=== PATIENT | female | born 1970 | race Caucasian/White ===

== ENCOUNTER → 2016-11-25 | Outpatient (CLI) | payer OTHER ==
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
== END | disposition home or self-care (01) ==
LOC: RADMRIMAIN 08:24
PROVIDERS: ATTEND Family Medicine
DX: M99.71 Connective tissue and disc stenosis of intervertebral foramina of cervical region (principal); M99.72 Connective tissue and disc stenosis of intervertebral foramina of thoracic region; M50.222 Other cervical disc displacement at C5-C6 level; M51.24 Other intervertebral disc displacement, thoracic region; M46.82 Other specified inflammatory spondylopathies, cervical region
CPT/HCPCS: 72141

== ENCOUNTER → 2017-03-06 | Outpatient (CLI) | payer OTHER ==
--- NOTE | 2017-03-06 08:55 | MR ---
EXAMINATION TYPE: MR shoulder LT wo con DATE OF EXAM: 03/06/2017 8:40 AM COMPARISON: NONE HISTORY: pain in lt shoulder TECHNIQUE: Multiplanar multispin echo imaging of the left shoulder was performed. FINDINGS: Rotator cuff : There is a heterogeneity of the supraspinatus tendon with focal intrasubstance tear at the level of the critical zone. No evidence for full-thickness tear. The remaining constituents of t he rotator cuff have a normal appearance. Bursa: No bursal effusion or thickening is seen. Musculature: There is no muscular tear, contusion, or atrophy. Acromioclavicular joint : Subacromial spurring results in impingement. Mild AC joint arthropathy. Osseous structures : There are no fractures or regions of abnormal bone marrow signal intensity. Long biceps tendon : The biceps tendon is normally situated within the bicipital groove. No complete or partial biceps tendon tear is present. There is tendinosis of the intra-articular portion of the b iceps tendon. Glenohumeral Joint fluid : Small amount of fluid within the subcoracoid region. Cartilage and Bone : No focal hyaline cartilage defects are noted. No Hill-Sachs, reverse Hill-Sachs, or bony Bankart lesions are seen. Labrum : There are no SLAP or soft tissue Bankart lesions. No paralabral cysts are seen. OTHER FINDINGS : none IMPRESSION: 1. There is a heterogeneity of the supraspinatus tendon with focal intrasubstance tear at the level o f the critical zone. No evidence for full-thickness tear. 2. Subacromial spur resulting in impingement.
== END | disposition home or self-care (01) ==
LOC: RADMRIMAIN 07:46
PROVIDERS: ATTEND Family Medicine
DX: M75.102 Unspecified rotator cuff tear or rupture of left shoulder, not specified as traumatic (principal); M75.82 Other shoulder lesions, left shoulder

== ENCOUNTER 2017-03-27 10:49 | Emergency (ER) | payer OTHER ==
[2017-03-27] MEDS ORDERED: LORazepam 2 MG/ML SYRINGE IV STA (11:25)
[2017-03-27] MEDS ORDERED: ASPIRIN 325 MG TAB PO STA (11:25)
--- NOTE | 2017-03-27 11:38 | ED ---
General Adult HPI - General Chief complaint: Recheck/Abnormal Lab/Rx Stated complaint: DIZZINESS, LIGHTHEAD Source: patient Mode of arrival: ambulatory Limitations: no limitations - History of Present Illness Initial comments: 46-year-old female with past medical history of anxiety, smoking, appendectomy, tubal ligation presented for evaluation of sudden onset nausea, lightheadedness, shakiness that started at 10:30 AM this morning. She states that she has a long-standing history of anxiety but denies previously having a panic attack. She states when his symptoms came on "I felt like I was going to pass out." She has never had these symptoms previously. Symptoms continued to persist up to arrival in the ED although they did dissipate slightly. She states she had some chest discomfort that radiated to her left arm that she describes as a warm sensation. She denies any symptoms, diarrhea, constipation although she has been having some abdominal discomfort for the past week or so. She states this is nonspecific and there is no localized pain. There is no change in medications, no change in diet habits, and she states that her job is going well and there is no stress in her home life. - Related Data Home Medications Medication Instructions Recorded Confirmed DULoxetine HCL [Cymbalta] 30 mg PO DAILY 05/28/16 03/27/17 [place]-3 Fatty Acids/Fish Oil [Fish 1 cap PO DAILY 03/27/17 03/27/17 Oil 1,000 mg Softgel] Turmeric Root Extract [Turmeric] 500 mg PO DAILY 03/27/17 03/27/17 Allergies Allergy/AdvReac Type Severity Reaction Status Date / Time No Known Allergies Allergy Verified 03/27/17 11:26 Review of Systems ROS Statement: Those systems with pertinent positive or pertinent negative responses have been documented in the HPI. ROS Other: All systems not noted in ROS Statement are negative. Constitutional: Denies: fever, chills, weakness Eyes: Denies: eye pain, eye discharge, vision change ENT: Denies: ear pain, throat pain, dental pain, hearing loss Respiratory: Denies: cough, dyspnea, wheezes, hemoptysis, stridor Cardiovascular: Reports: chest pain. Denies: palpitations, dyspnea on exertion , orthopnea, edema Endocrine: Denies: fatigue, polydipsia, polyuria Gastrointestinal: Reports: nausea. Denies: abdominal pain, vomiting, diarrhea, constipation, hematemesis Genitourinary: Denies: urgency, dysuria, frequency, hematuria, discharge Musculoskeletal: Denies: back pain, arthralgia, myalgia Skin: Denies: rash, lesions Neurological: Reports: other (Lightheaded). Denies: headache, weakness Psychiatric: Reports: anxiety. Denies: depression Hematological/Lymphatic: Denies: easy bleeding, easy bruising Past Medical History Past Medical History: No Reported History Additional Past Medical History / Comment(s): ALOPEICA, UTI History of Any Multi-Drug Resistant Organisms: None Reported Past Surgical History: Appendectomy, Tubal Ligation Additional Past Surgical History / Comment(s): WISDOM THEETH EXTRACTED Past Anesthesia/Blood Transfusion Reactions: No Reported Reaction Past Psychological History: Anxiety Additional Psychological History / Comment(s): GENERALIZED ANXIETY DISORDER Smoking Status: Current every day smoker Past Alcohol Use History: Occasional Additional Past Alcohol Use History / Comment(s): SMOKES 1 PP WEEK, DRINKS 1-2 COCTAILS PER NIGHT,DENIES ANY PAST OR CURRENT DRUG USE. Past Drug Use History: None Reported - Past Family History Father History Unknown: Yes Mother History Unknown: Yes General Exam Limitations: no limitations General appearance: alert, in no apparent distress Head exam: Present: atraumatic, normocephalic, normal inspection Eye exam: Present: normal appearance, PERRL, EOMI. Absent: scleral icterus, conjunctival injection, periorbital swelling ENT exam: Present: normal exam, mucous membranes moist Neck exam: Present: normal inspection. Absent: tenderness, meningismus, lymphadenopathy Respiratory exam: Present: normal lung sounds bilaterally. Absent: respiratory distress, wheezes, rales, rhonchi, stridor Cardiovascular Exam: Present: regular rate, normal rhythm, normal heart sounds. Absent: systolic murmur, diastolic murmur, rubs, gallop, clicks GI/Abdominal exam: Present: soft, normal bowel sounds. Absent: distended, tenderness, guarding, rebound, rigid Rectal exam: Present: deferred Extremities exam: Present: normal inspection, full ROM, normal capillary refill. Absent: tenderness, pedal edema, joint swelling, calf tenderness Back exam: Present: normal inspection Neurological exam: Present: alert, oriented X3, CN II-XII intact Psychiatric exam: Present: anxious. Absent: agitated, flat affect, manic Skin exam: Present: warm, dry, intact, normal color. Absent: rash Course Vital Signs 03/27/17 03/27/17 03/27/17 10:58 12:35 13:13 Temperature 98 F Pulse Rate 105 H 104 H 108 H Respiratory 22 20 20 Rate Blood Pressure 147/107 154/103 O2 Sat by Pulse 100 99 Oximetry 03/27/17 14:34 Temperature 98.5 F Pulse Rate 98 Respiratory 18 Rate Blood Pressure 144/83 O2 Sat by Pulse 98 Oximetry - Reevaluation(s) Reevaluation #1: 03/27/17 12:52 Patient reevaluated and stated that she was feeling like her heart was racing. Initially upon entering room the heart rate was around 100 but over the course of the conversation did increase to 120 and then back into the 100 teens. Although the patient is very low risk for DVT/PE she cannot PERC out with a heart rate is high. Will send for a d-dimer. EKG Findings - EKG Comments: EKG Findings:: Normal sinus rhythm with an incomplete right bundle-branch block. Ventricular rate 91, MD interval 126, QRS 110, QT/QTC 384/472. Medical Decision Making - Medical Decision Making 46-year-old female presenting for evaluation of nausea, lightheadedness, shakiness that started at 10:30 suddenly this morning. She states that it feels like anxiety but she doesn't usually have panic attacks all she does have long-standing anxiety. On physical examination the patient does appear anxious although is answering all questions appropriately and is a and O 4. Lungs are clear to auscultation bilaterally and cardiac exam reveals a mild tachycardia but otherwise no significant abnormalities. Abdomen is soft and nontender without peritoneal signs of guarding, rigidity, rebound. Although there is an anxiety component to her symptoms will perform a workup to rule out ACS etiology. The patient was seen here May of last year and had an echo and a stress test which were negative for ischemia. We'll obtain labs, EKG , chest x-ray and provide aspirin. We'll also give Ativan for anxiety. Labs revealed no significant abnormalities. Chest x-ray showed no acute cardio pulmonary process however there was some strandy left infrahilar atelectasis. The patient was reevaluated and had improvement in her tachycardia and also anxiety. She stated that she felt much better at this time and through shared decision making it was determined that she would be discharged with instructions to follow-up with her primary care physician but to return to this facility if her symptoms should worsen or persist. The patient acknowledged an understanding of this information and agreed with this plan of care. - Lab Data Result diagrams: 03/27/17 11:43 03/27/17 11:43 Lab Results 03/27/17 03/27/17 03/27/17 Range/Units 11:43 11:43 11:43 WBC 6.7 (3.8-10.6) k/uL RBC 4.41 (3.80-5.40) m/uL Hgb 14.5 (11.4-16.0) gm/dL Hct 42.2 (34.0-46.0) % MCV 95.5 (80.0-100.0) fL MCH 32.9 (25.0-35.0) pg MCHC 34.5 (31.0-37.0) g/dL RDW 12.7 (11.5-15.5) % Plt Count 283 (150-450) k/uL Neutrophils % 77 % Lymphocytes % 10 % Monocytes % 6 % Eosinophils % 3 % Basophils % 1 % Neutrophils # 5.2 (1.3-7.7) k/uL Lymphocytes # 0.7 L (1.0-4.8) k/uL Monocytes # 0.4 (0-1.0) k/uL Eosinophils # 0.2 (0-0.7) k/uL Basophils # 0.1 (0-0.2) k/uL D-Dimer (<0.60) mg/L FEU Sodium 135 L (137-145) mmol/L Potassium 3.5 (3.5-5.1) mmol/L Chloride 96 L (98-107) mmol/L Carbon Dioxide 26 (22-30) mmol/L Anion Gap 13 mmol/L BUN 11 (7-17) mg/dL Creatinine 0.48 L (0.52-1.04) mg/dL Est GFR (MDRD) Af Amer >60 (>60 ml/min/1.73 sqM) Est GFR (MDRD) Non-Af >60 (>60 ml/min/1.73 sqM) Glucose 162 H (74-99) mg/dL Calcium 9.7 (8.4-10.2) mg/dL Troponin I (0.000-0.034) ng/mL NT-Pro-B Natriuret Pep <11 pg/mL Urine Color Urine Appearance (Clear) Urine pH (5.0-8.0) Ur Specific [place] (1.001-1.035) Urine Protein (Negative) Urine Glucose (UA) (Negative) Urine Ketones (Negative) Urine Blood (Negative) Urine Nitrite (Negative) Urine Bilirubin (Negative) Urine Urobilinogen (<2.0) mg/dL Ur Leukocyte Esterase (Negative) Urine HCG, Qual (Not Detectd) 03/27/17 03/27/17 03/27/17 Range/Units 11:43 11:43 13:05 WBC (3.8-10.6) k/uL RBC (3.80-5.40) m/uL Hgb (11.4-16.0) gm/dL Hct (34.0-46.0) % MCV (80.0-100.0) fL MCH (25.0-35.0) pg MCHC (31.0-37.0) g/dL RDW (11.5-15.5) % Plt Count (150-450) k/uL Neutrophils % % Lymphocytes % % Monocytes % % Eosinophils % % Basophils % % Neutrophils # (1.3-7.7) k/uL Lymphocytes # (1.0-4.8) k/uL Monocytes # (0-1.0) k/uL Eosinophils # (0-0.7) k/uL Basophils # (0-0.2) k/uL D-Dimer 0.38 (<0.60) mg/L FEU Sodium (137-145) mmol/L Potassium (3.5-5.1) mmol/L Chloride (98-107) mmol/L Carbon Dioxide (22-30) mmol/L Anion Gap mmol/L BUN (7-17) mg/dL Creatinine (0.52-1.04) mg/dL Est GFR (MDRD) Af Amer (>60 ml/min/1.73 sqM) Est GFR (MDRD) Non-Af (>60 ml/min/1.73 sqM) Glucose (74-99) mg/dL Calcium (8.4-10.2) mg/dL Troponin I <0.012 (0.000-0.034) ng/mL NT-Pro-B Natriuret Pep pg/mL Urine Color Yellow Urine Appearance Clear (Clear) Urine pH 6.5 (5.0-8.0) Ur Specific [place] 1.009 (1.001-1.035) Urine Protein Negative (Negative) Urine Glucose (UA) Negative (Negative) Urine Ketones 2+ H (Negative) Urine Blood Negative (Negative) Urine Nitrite Negative (Negative) Urine Bilirubin Negative (Negative) Urine Urobilinogen <2.0 (<2.0) mg/dL Ur Leukocyte Esterase Negative (Negative) Urine HCG, Qual (Not Detectd) 03/27/17 Range/Units 13:05 WBC (3.8-10.6) k/uL RBC (3.80-5.40) m/uL Hgb (11.4-16.0) gm/dL Hct (34.0-46.0) % MCV (80.0-100.0) fL MCH (25.0-35.0) pg MCHC (31.0-37.0) g/dL RDW (11.5-15.5) % Plt Count (150-450) k/uL Neutrophils % % Lymphocytes % % Monocytes % % Eosinophils % % Basophils % % Neutrophils # (1.3-7.7) k/uL Lymphocytes # (1.0-4.8) k/uL Monocytes # (0-1.0) k/uL Eosinophils # (0-0.7) k/uL Basophils # (0-0.2) k/uL D-Dimer (<0.60) mg/L FEU Sodium (137-145) mmol/L Potassium (3.5-5.1) mmol/L Chloride (98-107) mmol/L Carbon Dioxide (22-30) mmol/L Anion Gap mmol/L BUN (7-17) mg/dL Creatinine (0.52-1.04) mg/dL Est GFR (MDRD) Af Amer (>60 ml/min/1.73 sqM) Est GFR (MDRD) Non-Af (>60 ml/min/1.73 sqM) Glucose (74-99) mg/dL Calcium (8.4-10.2) mg/dL Troponin I (0.000-0.034) ng/mL NT-Pro-B Natriuret Pep pg/mL Urine Color Urine Appearance (Clear) Urine pH (5.0-8.0) Ur Specific [place] (1.001-1.035) Urine Protein (Negative) Urine Glucose (UA) (Negative) Urine Ketones (Negative) Urine Blood (Negative) Urine Nitrite (Negative) Urine Bilirubin (Negative) Urine Urobilinogen (<2.0) mg/dL Ur Leukocyte Esterase (Negative) Urine HCG, Qual Not Detected (Not Detectd) Disposition Clinical Impression: Anxiety, Palpitations Disposition: HOME SELF-CARE Condition: Stable Instructions: Anxiety (ED), Anxiolysis in Adults (ED) Referrals: Jose Hooper DO [Primary Care Provider] - 1-2 days Time of Disposition: 14:44
[2017-03-27 11:54] LABS: Basophils # (A) 0.1 k/uL (0-0.2); Basophils % (A) 1 %; CH 33.2; CHCM 34.8; Eosinophils # (A) 0.2 k/uL (0-0.7); Eosinophils % (A) 3 %; HCT 42.2 % (34.0-46.0); HDW 2.13; HGB 14.5 gm/dL (11.4-16.0); Luc % (Auto) 3; Lymphocytes # (A) 0.7 k/uL (1.0-4.8); Lymphocytes % (A) 10 %; MCH 32.9 pg (25.0-35.0); MCHC 34.5 g/dL (31.0-37.0); MCV 95.5 fL (80.0-100.0); Mean Platelet Volume 6.9; Monocytes # (A) 0.4 k/uL (0-1.0); Monocytes % (A) 6 %; Neutrophils # (A) 5.2 k/uL (1.3-7.7); Neutrophils % (A) 77 %; RBC 4.41 m/uL (3.80-5.40); RDW 12.7 % (11.5-15.5); WBC 6.7 k/uL (3.8-10.6); WBC (Perox) 6.73
[2017-03-27 12:07] LABS: Anion Gap 13 mmol/L; Blood Urea Nitrogen 11 mg/dL (7-17); Calcium 9.7 mg/dL (8.4-10.2); Carbon Dioxide 26 mmol/L (22-30); Chloride 96 mmol/L (98-107); Glucose 162 mg/dL (74-99); Non-African American GFR(MDRD) >60 (>60 ml/min/1.73 sqM); Potassium 3.5 mmol/L (3.5-5.1); Sodium 135 mmol/L (137-145)
--- NOTE | 2017-03-27 12:32 | XR ---
EXAMINATION TYPE: XR chest 2V DATE OF EXAM: 03/27/2017 12:24 PM COMPARISON: 05/28/2016 HISTORY: 46-year-old female with chest pain TECHNIQUE: AP and lateral views FINDINGS: Heart is normal size. Aorta and pulmonary vasculature within normal limits. No consolidation or pleur al effusion. Some strandy atelectasis in the left infrahilar region. IMPRESSION: No acute cardiopulmonary process. Some strandy left infrahilar atelectasis.
[2017-03-27] MEDS ORDERED: SODIUM CHLORIDE 0.9% 1,000 ML IV ONE (13:05)
[2017-03-27 13:14] LABS: Appearance,Urine Clear (Clear); Bilirubin,Urine Negative (Negative); Glucose,Urine (UA) Negative (Negative); Ketones,Urine 2+ (Negative); Leukocyte Esterase,Urine Negative (Negative); Nitrite,Urine Negative (Negative); PH, Urine 6.5 (5.0-8.0); Protein,Urine Negative (Negative); Specific Gravity,Urine 1.009 (1.001-1.035); UA Billing (MACRO vs. MICRO) CHEM; Urobilinogen,Urine <2.0 mg/dL (<2.0)
[2017-03-27 14:35] VITALS: BP 144/83; PULSE 98; RESP 18; TEMP 98.5
== END 2017-03-27 14:51 | disposition home or self-care (01) ==
LOC: EC 10:49
DX: F41.9 Anxiety disorder, unspecified (principal); J98.11 Atelectasis; R00.0 Tachycardia, unspecified; R42 Dizziness and giddiness; R11.0 Nausea; F17.200 Nicotine dependence, unspecified, uncomplicated; Z79.899 Other long term (current) drug therapy
CPT/HCPCS: 36415; 93005; 85379; 83880; 80048; 84484; 85025; 81003; 81025; 71020; 99284; 96374; 96361 ×2; J2060

== ENCOUNTER 2017-07-18 11:43 | Emergency (ER) | payer OTHER ==
--- NOTE | 2017-07-18 12:23 | ED ---
General Adult HPI - General Chief complaint: Chest Pain Stated complaint: Chest Pain Time Seen by Provider: 07/18/17 12:12 Source: patient Mode of arrival: ambulatory Limitations: no limitations - History of Present Illness Initial comments: This 46-year-old white female presents with a complaint of some pain in her left lower chest and upper abdomen. It is been present for approximately 2 weeks. She describes it as a pulsating type of pain. She states that she can feel her pulse in this area and it correlates with her heart beat when she feels her neck. She states that she was on the Internet and looked up her symptoms and thinks she may have an abdominal aneurysm or a ruptured spleen. She is very nervous in this regard. She states that she does not feel as though it is her heart. She had a negative stress test and cardiac workup 3 months ago prior to left shoulder surgery. She is on an SSRI medication for her anxiety. She denies any leg pain or swelling. There is no shortness of breath fevers or chills. No other complaints or modifying factors. - Related Data Home Medications Medication Instructions Recorded Confirmed [place]-3 Fatty Acids/Fish Oil [Fish 1 cap PO DAILY 03/27/17 07/18/17 Oil 1,000 mg Softgel] Magnesium 200 mg PO DAILY 07/18/17 07/18/17 Sertraline [Zoloft] 25 mg PO DAILY 07/18/17 07/18/17 Allergies Allergy/AdvReac Type Severity Reaction Status Date / Time No Known Allergies Allergy Verified 07/18/17 12:21 Review of Systems ROS Statement: Those systems with pertinent positive or pertinent negative responses have been documented in the HPI. ROS Other: All systems not noted in ROS Statement are negative. Past Medical History Past Medical History: No Reported History Additional Past Medical History / Comment(s): ALOPEICA, UTI History of Any Multi-Drug Resistant Organisms: None Reported Past Surgical History: Appendectomy, Tubal Ligation Additional Past Surgical History / Comment(s): WISDOM TEETH EXTRACTED Past Anesthesia/Blood Transfusion Reactions: No Reported Reaction Past Psychological History: Anxiety Smoking Status: Current every day smoker Past Alcohol Use History: Occasional Past Drug Use History: None Reported - Past Family History Father History Unknown: Yes Mother History Unknown: Yes General Exam - General Exam Comments Initial Comments: GENERAL: The patient is well nourished and well hydrated. VITAL SIGNS: Heart rate, blood pressure, respiratory rate reviewed as recorded in nurse's notes. EYES: Pupils are round and reactive. Extraocular movements are intact. No conjunctival / lid redness or swelling. ENT: No external evidence of injury, swelling, or ecchymosis. Airway is patent. Throat is clear. NECK: Nontender. No swelling or evidence of injury. No subcutaneous emphysema. Trachea is midline. No thyroid mass. HEART: Regular rate and rhythm. Good peripheral pulses. LUNGS/CHEST: Breath sounds clear and equal bilaterally. No rales, rhonchi, or wheezes. There is some mild tenderness into the left inferior lateral ribs. ABDOMEN: There is some minimal tenderness in the left upper quadrant and into the left lower inferolateral ribs. No palpable masses or organomegaly. No peritoneal signs. No abdominal wall swelling or ecchymosis. EXTREMITIES: No extremity tenderness. Normal muscle tone and function. No thoracolumbar tenderness. NEUROLOGIC: Sensation is grossly intact. Cranial nerve exam reveals face is symmetrical, tongue is midline, speech is clear. SKIN: No abrasions or ecchymosis is noted. No induration or masses noted. PSYCHIATRIC: Alert and oriented. Appropriate behavior and judgment but appears mildly anxious. Limitations: no limitations Course Vital Signs 07/18/17 07/18/17 07/18/17 11:47 13:48 15:00 Temperature 97.1 F L Pulse Rate 90 83 Respiratory 20 18 18 Rate Blood Pressure 135/85 129/61 124/82 O2 Sat by Pulse 99 98 100 Oximetry Medical Decision Making - Medical Decision Making The patient was seen and examined. All diagnostics were reviewed. The EKG shows a normal sinus rhythm at a rate of 86. There is no acute ST-T wave changes identified. The TN interval is 124, QRS duration is 98, and the QTc interval is 457. The laboratory is all essentially within normal limits. The ultrasound of the abdomen does show a normal spleen and normal aorta. The radiologist notes the possibility of hydronephrosis on the right side. This would not clinically correlate with current symptomatology has her symptoms are all on the left side. The exam was also limited due to bowel gas. Overall, the exact cause of her symptoms is not definitively determined. It is felt as though her pain is reproducible and is not appear to be of cardiac origin. She also had recent cardiac workup which was negative. The possibility of this being related to gastritis or peptic ulcer disease is possible although she states that she recently went on a trial of Prilosec for 2 weeks and this did not seem to help. It is felt as though she does have a degree of chronicity to her current symptomatology and that there is no acute process at this time and that she is cleared for discharge from the ER and close follow-up with her primary care physician for further evaluation. - Lab Data Result diagrams: 07/18/17 12:55 07/18/17 12:55 Lab Results 07/18/17 07/18/17 07/18/17 Range/Units 12:55 12:55 12:55 WBC 8.2 (3.8-10.6) k/uL RBC 4.77 (3.80-5.40) m/uL Hgb 15.2 (11.4-16.0) gm/dL Hct 44.2 (34.0-46.0) % MCV 92.6 (80.0-100.0) fL MCH 31.8 (25.0-35.0) pg MCHC 34.4 (31.0-37.0) g/dL RDW 12.6 (11.5-15.5) % Plt Count 312 (150-450) k/uL Neutrophils % 78 % Lymphocytes % 14 % Monocytes % 5 % Eosinophils % 2 % Basophils % 1 % Neutrophils # 6.3 (1.3-7.7) k/uL Lymphocytes # 1.1 (1.0-4.8) k/uL Monocytes # 0.4 (0-1.0) k/uL Eosinophils # 0.2 (0-0.7) k/uL Basophils # 0.1 (0-0.2) k/uL PT (9.0-12.0) sec INR (<1.2) APTT (22.0-30.0) sec Sodium 138 (137-145) mmol/L Potassium 3.9 (3.5-5.1) mmol/L Chloride 101 (98-107) mmol/L Carbon Dioxide 23 (22-30) mmol/L Anion Gap 14 mmol/L BUN 9 (7-17) mg/dL Creatinine 0.54 (0.52-1.04) mg/dL Est GFR (MDRD) Af Amer >60 (>60 ml/min/1.73 sqM) Est GFR (MDRD) Non-Af >60 (>60 ml/min/1.73 sqM) Glucose 95 (74-99) mg/dL Calcium 9.7 (8.4-10.2) mg/dL Total Bilirubin 0.5 (0.2-1.3) mg/dL AST 31 (14-36) U/L ALT 44 (9-52) U/L Alkaline Phosphatase 56 (38-126) U/L Total Creatine Kinase 44 (30-135) U/L CK-MB (CK-2) 0.5 (0.0-2.4) ng/mL CK-MB (CK-2) Rel Index 1.1 Troponin I <0.012 (0.000-0.034) ng/mL Total Protein 7.6 (6.3-8.2) g/dL Albumin 4.8 (3.5-5.0) g/dL Amylase 64 (30-110) U/L Lipase 121 (23-300) U/L Urine Color Urine Appearance (Clear) Urine pH (5.0-8.0) Ur Specific [place] (1.001-1.035) Urine Protein (Negative) Urine Glucose (UA) (Negative) Urine Ketones (Negative) Urine Blood (Negative) Urine Nitrite (Negative) Urine Bilirubin (Negative) Urine Urobilinogen (<2.0) mg/dL Ur Leukocyte Esterase (Negative) 07/18/17 07/18/17 Range/Units 12:55 13:55 WBC (3.8-10.6) k/uL RBC (3.80-5.40) m/uL Hgb (11.4-16.0) gm/dL Hct (34.0-46.0) % MCV (80.0-100.0) fL MCH (25.0-35.0) pg MCHC (31.0-37.0) g/dL RDW (11.5-15.5) % Plt Count (150-450) k/uL Neutrophils % % Lymphocytes % % Monocytes % % Eosinophils % % Basophils % % Neutrophils # (1.3-7.7) k/uL Lymphocytes # (1.0-4.8) k/uL Monocytes # (0-1.0) k/uL Eosinophils # (0-0.7) k/uL Basophils # (0-0.2) k/uL PT 10.2 (9.0-12.0) sec INR 1.0 (<1.2) APTT 25.0 (22.0-30.0) sec Sodium (137-145) mmol/L Potassium (3.5-5.1) mmol/L Chloride (98-107) mmol/L Carbon Dioxide (22-30) mmol/L Anion Gap mmol/L BUN (7-17) mg/dL Creatinine (0.52-1.04) mg/dL Est GFR (MDRD) Af Amer (>60 ml/min/1.73 sqM) Est GFR (MDRD) Non-Af (>60 ml/min/1.73 sqM) Glucose (74-99) mg/dL Calcium (8.4-10.2) mg/dL Total Bilirubin (0.2-1.3) mg/dL AST (14-36) U/L ALT (9-52) U/L Alkaline Phosphatase (38-126) U/L Total Creatine Kinase (30-135) U/L CK-MB (CK-2) (0.0-2.4) ng/mL CK-MB (CK-2) Rel Index Troponin I (0.000-0.034) ng/mL Total Protein (6.3-8.2) g/dL Albumin (3.5-5.0) g/dL Amylase (30-110) U/L Lipase (23-300) U/L Urine Color Light Yellow Urine Appearance Clear (Clear) Urine pH 5.5 (5.0-8.0) Ur Specific [place] 1.003 (1.001-1.035) Urine Protein Negative (Negative) Urine Glucose (UA) Negative (Negative) Urine Ketones 1+ H (Negative) Urine Blood Negative (Negative) Urine Nitrite Negative (Negative) Urine Bilirubin Negative (Negative) Urine Urobilinogen <2.0 (<2.0) mg/dL Ur Leukocyte Esterase Negative (Negative) Disposition Clinical Impression: Chest pain, Abdominal pain Disposition: HOME SELF-CARE Condition: Good Instructions: Chest Pain (ED), Abdominal Pain (ED) Referrals: Jose Hooper DO [Primary Care Provider] - 1-2 days Time of Disposition: 15:37
[2017-07-18 13:11] LABS: Basophils # (A) 0.1 k/uL (0-0.2); Basophils % (A) 1 %; CH 32.9; CHCM 35.7; Eosinophils # (A) 0.2 k/uL (0-0.7); Eosinophils % (A) 2 %; HCT 44.2 % (34.0-46.0); HDW 2.39; HGB 15.2 gm/dL (11.4-16.0); Luc # (Auto) 0.12; Luc % (Auto) 2; Lymphocytes # (A) 1.1 k/uL (1.0-4.8); Lymphocytes % (A) 14 %; MCH 31.8 pg (25.0-35.0); MCHC 34.4 g/dL (31.0-37.0); MCV 92.6 fL (80.0-100.0); Mean Platelet Volume 7.9; Monocytes # (A) 0.4 k/uL (0-1.0); Monocytes % (A) 5 %; Neutrophils # (A) 6.3 k/uL (1.3-7.7); Neutrophils % (A) 78 %; RBC 4.77 m/uL (3.80-5.40); RDW 12.6 % (11.5-15.5); WBC 8.2 k/uL (3.8-10.6); WBC (Perox) 8.24
[2017-07-18 13:15] LABS: Prothrombin Time 10.2 sec (9.0-12.0)
[2017-07-18 13:18] LABS: ALT 44 U/L (9-52); AST 31 U/L (14-36); Alkaline Phosphatase 56 U/L (38-126); Amylase 64 U/L (30-110); Anion Gap 14 mmol/L; Blood Urea Nitrogen 9 mg/dL (7-17); Calcium 9.7 mg/dL (8.4-10.2); Carbon Dioxide 23 mmol/L (22-30); Chloride 101 mmol/L (98-107); Glucose 95 mg/dL (74-99); Non-African American GFR(MDRD) >60 (>60 ml/min/1.73 sqM); Potassium 3.9 mmol/L (3.5-5.1); Sodium 138 mmol/L (137-145); Total Bilirubin 0.5 mg/dL (0.2-1.3); Total Protein 7.6 g/dL (6.3-8.2)
[2017-07-18 13:34] LABS: Creatine Kinase 44 U/L (30-135)
[2017-07-18 13:47] LABS: Creatine Kinase MB 0.5 ng/mL (0.0-2.4); Troponin I <0.012 ng/mL (0.000-0.034)
[2017-07-18 14:20] LABS: Appearance,Urine Clear (Clear); Bilirubin,Urine Negative (Negative); Glucose,Urine (UA) Negative (Negative); Ketones,Urine 1+ (Negative); Leukocyte Esterase,Urine Negative (Negative); Nitrite,Urine Negative (Negative); PH, Urine 5.5 (5.0-8.0); Protein,Urine Negative (Negative); Specific Gravity,Urine 1.003 (1.001-1.035); UA Billing (MACRO vs. MICRO) CHEM; Urobilinogen,Urine <2.0 mg/dL (<2.0)
[2017-07-18 14:27] VITALS: RESP 18
--- NOTE | 2017-07-18 15:00 | US ---
EXAMINATION TYPE: US abdomen complete DATE OF EXAM: 07/18/2017 COMPARISON: NONE CLINICAL HISTORY: Pain. Intermittent LUQ pain x couple weeks, history of appendectomy EXAM MEASUREMENTS: Liver Length: 14.8 cm Gallbladder Wall: 0.2 cm CBD: 0.3 cm Spleen: 7.9 cm Right Kidney: 10.8 x 5.0 x 5.6 cm Left Kidney: 10.0 x 5.6 x 4.9 cm Pancreas: visualized portions wnl, head limited by overlying midline bowel gas, tail obscured by ove rlying midline bowel gas Liver: wnl Gallbladder: wnl Evidence for sonographic Goss's sign: no CBD: wnl Spleen: visualized portions wnl, limited by rib shadowing and overlying bowel gas Right Kidney: small amount of fluid in renal pelvis, inferior pole limited by overlying bowel gas Left Kidney: visualized portions wnl, superior pole limited by rib shadowing and overlying bowel gas Upper IVC: wnl in its visualized portions Abd Aorta: wnl There is no ascites. IMPRESSION: There are some limitations in exam. There may be some minimal hydronephrosis on the right .
[2017-07-18 15:17] VITALS: BP 124/82; PULSE 83
[2017-07-18 15:52] VITALS: TEMP 98
--- NOTE | 2017-07-21 12:58 | XR ---
EXAMINATION TYPE: XR chest 2V DATE OF EXAM: 07/18/2017 COMPARISON: 03/27/2017 TECHNIQUE: PA and lateral views submitted. HISTORY: Weakness, chest pain FINDINGS: The lungs are clear and there is no pneumothorax, pleural effusion, or focal pneumonia. Hypertrophi c and degenerative change of the spine. No overt failure. IMPRESSION: 1. No acute process.
== END 2017-07-18 15:52 | disposition home or self-care (01) ==
LOC: EC 11:43
DX: R07.81 Pleurodynia (principal); R10.12 Left upper quadrant pain; F41.9 Anxiety disorder, unspecified; F17.200 Nicotine dependence, unspecified, uncomplicated; Z79.899 Other long term (current) drug therapy; Z98.890 Other specified postprocedural states
CPT/HCPCS: 36415; 71020; 76700; 80053; 81003; 82150; 82550; 82553; 83690; 84484; 85025; 85610; 85730; 93005; 99285

== ENCOUNTER → 2017-07-25 | Outpatient (CLI) | payer OTHER ==
--- NOTE | 2017-07-25 09:15 | US ---
EXAMINATION TYPE: US axilla LT DATE OF EXAM: 07/25/2017 COMPARISON: NONE CLINICAL HISTORY: Edema R60.9. Patient stated has had pain and swelling left axilla prior to left sury ulder surgery in May 2017. Patient stated is coming for mammogram next week; no trauma to left axill a per patient and is left hand dominant. US findings: at left axilla two lymph nodes are seen with larger = 1.0 x 1.1 x 0.4cm; left axillary a rtery and vein are patent by color flow and PW Doppler. Right axilla is compared and a lymph node is also imaged = 1.4 x 1.0 x 0.4cm. IMPRESSION: 1. Axillary lymph nodes
== END | disposition home or self-care (01) ==
LOC: RADUSWWP 08:15
PROVIDERS: ATTEND Family Medicine
DX: R60.9 Edema, unspecified (principal)

== ENCOUNTER → 2017-07-28 | Outpatient (CLI) | payer OTHER ==
--- NOTE | 2017-07-28 09:11 | MM ---
Reason for exam: screening (asymptomatic). Baseline mammogram. Physical Findings: Nurse did not find any significant physical abnormalities on exam. MG Screening Mammo w CAD Bilateral CC and MLO view(s) were taken. There are scattered fibroglandular densities. Asymmetric density lateral right breast. Focal asymmetry 9 o'clock left breast. These may relate to summation shadow but further evaluation is recommended. These results were verbally communicated with the patient and result sheet given to the patient on 07/28/17. ASSESSMENT: Incomplete: need additional imaging evaluation, BI-RAD 0 RECOMMENDATION: Special view mammogram of both breasts. If lesion persists on supplemental views, image directed ultrasound is recommended. [facility] will attempt to contact patient to return for supplemental views and ultrasound if indicated.
--- NOTE | 2017-07-28 09:13 | MM ---
Reason for exam: additional evaluation requested from abnormal screening. MG Work Up Mamm w CAD BILAT Bilateral LM view(s) were taken. CC view(s) were taken of the right breast. Spot compression CC and spot compression MLO view(s) were taken of the left breast. There are scattered fibroglandular densities. No persisting abnormality is seen. These results were verbally communicated with the patient and result sheet given to the patient on 07/28/17. ASSESSMENT: Negative, BI-RAD 1 RECOMMENDATION: Return to routine screening mammogram schedule for both breasts.
== END | disposition home or self-care (01) ==
LOC: RADMAMWWP 07:40
PROVIDERS: ATTEND Family Medicine
DX: Z12.31 Encounter for screening mammogram for malignant neoplasm of breast (principal); R92.8 Other abnormal and inconclusive findings on diagnostic imaging of breast
CPT/HCPCS: G0202; G0204

== ENCOUNTER → 2017-12-03 | Outpatient (CLI) | payer OTHER ==
--- NOTE | 2017-12-03 17:01 | US ---
EXAMINATION TYPE: US axilla RT DATE OF EXAM: 12/03/2017 COMPARISON: NONE CLINICAL HISTORY: R59.0 Localized enlarged. No palpable and no pain Normal appearing soft tissue with largest lymph node seen measuring 0.8 x 0.5 x 0.6 cm IMPRESSION: 1. Normal right axillary ultrasound
--- NOTE | 2017-12-03 17:03 | US ---
EXAMINATION TYPE: US axilla LT DATE OF EXAM: 12/03/2017 COMPARISON: NONE CLINICAL HISTORY: R59.0 Localized enlarged. Patient had left axilla scanned in July and wanted f ollow up exam, no palpable, no pain Normal appearing soft tissue with largest appearing lymph node measuring 1.0 x 0.5 x 0.9 cm. IMPRESSION: 1. Normal left axillary ultrasound
== END | disposition home or self-care (01) ==
LOC: RADUSWWP 07:06
PROVIDERS: ATTEND Family Medicine
DX: R59.0 Localized enlarged lymph nodes (principal)

== ENCOUNTER → 2018-03-06 | Outpatient (CLI) | payer OTHER ==
--- NOTE | 2018-03-06 08:27 | CT ---
EXAMINATION TYPE: CT chest w con DATE OF EXAM: 03/06/2018 COMPARISON: NONE HISTORY: Lt upper chest pain CT DLP: 522 mGycm Automated exposure control for dose reduction was used. CONTRAST: CT scan of the chest is performed with IV Contrast, patient injected with 100 mL of Isovue 300. FINDINGS: LUNGS: The lungs are grossly clear, there is no concerning parenchymal mass or nodule identified. T here is no pleural effusion or pneumothorax seen. The tracheobronchial tree is patent. MEDIASTINUM: There are no greater than 1 cm hilar or mediastinal lymph nodes. No pericardial effusi on is seen. Thoracic aorta is of normal caliber. The heart is not enlarged. UPPER ABDOMEN: No significant abnormality appreciated. OTHER: No additional significant abnormality is seen. IMPRESSION: No significant abnormality to account for the patient's symptoms. Correlate clinically.
== END | disposition home or self-care (01) ==
LOC: RADCTMAIN 07:03
PROVIDERS: ATTEND Family Medicine
DX: R07.9 Chest pain, unspecified (principal)
CPT/HCPCS: 71260; Q9967

== ENCOUNTER → 2018-08-06 | Outpatient (CLI) | payer OTHER ==
--- NOTE | 2018-08-06 09:24 | MM ---
Reason for exam: additional evaluation requested from prior study. Last mammogram was performed 1 year ago. Physical Findings: Nurse did not find any significant physical abnormalities on exam. MG Diagnostic Mammo w CAD NADER Bilateral CC and MLO view(s) were taken. Prior study comparison: July 28, 2017, bilateral MG work up mamm w CAD BILAT. July 28, 2017, bilateral MG screening mammo w CAD. There are scattered fibroglandular densities. No significant new findings when compared with previous films. These results were verbally communicated with the patient and result sheet given to the patient on 08/06/18. ASSESSMENT: Negative, BI-RAD 1 RECOMMENDATION: Routine screening mammogram of both breasts in 1 year.
== END | disposition home or self-care (01) ==
LOC: RADMAMWWP 07-29 07:10
PROVIDERS: ATTEND Family Medicine
DX: Z53.9 Procedure and treatment not carried out, unspecified reason (principal)

== ENCOUNTER 2022-08-06 09:09 | Day surgery (SDC) | payer OTHER ==
[2022-08-02 11:37] VITALS: BMI 28.3
[~2022-08-06 09:09] MED LIST: LACTATED RINGERS 1,000 ML IV SCH
[2022-08-06] MEDS ORDERED: LACTATED RINGERS 1,000 ML IV ONE (09:55)
[2022-08-06 09:56] VITALS: TEMP 97.1
[2022-08-06] MEDS ORDERED: PROPOFOL 10 MG/ML 20 ML VIAL IV ONE (10:48)
--- NOTE | 2022-08-06 11:05 | P.PCN ---
Date of Procedure: 08/06/22 Procedure(s) Performed: BRIEF HISTORY: Patient is a 51-year-old [place] female scheduled for an elective colonoscopy as a part of screening for colon cancer and family history of colon cancer. Her mother was diagnosed with colon cancer at age 53. PROCEDURE PERFORMED: Colonoscopy with snare polypectomy. PREOPERATIVE DIAGNOSIS: Screening for colon Cancer and family history of colon cancer. IV sedation per Anesthesia. PROCEDURE: After informed consent was obtained, the patient, was brought into [facility] endoscopy unit. IV sedation was administered by Anesthesia under continuous monitoring. Digital rectal examination was normal. Initially the Olympus CF-160 flexible video colonoscope was then inserted in the rectum, gradually advanced into the cecum without any difficulty. Careful examination was performed as the scope was gradually being withdrawn. Ileocecal valve and the appendiceal orifice were visualized and appeared normal. Prep was excellent. Mucosa of the cecum had a 1 cm flat polyp that was removed by snare polypectomy. Rest of the, ascending colon, transverse colon, descending colon, sigmoid colon, and rectum appeared normal. Retroflexion was performed in the rectum and no lesions were seen. The patient tolerated the procedure well. IMPRESSION: 1 cm flat cecal polyp status post polypectomy Rest of the colon appeared RECOMMENDATIONS: Findings of this examination were discussed with the patient as her family. She was advised to follow with the biopsy results. If the biopsy is adenoma she can colonoscopy in 3 years..
[2022-08-06 11:43] VITALS: RESP 16
[2022-08-06 11:44] VITALS: BP 114/75; PULSE 67
== END 2022-08-06 11:46 | disposition home or self-care (01) ==
LOC: ORWHC2ENDO 09:09
PROVIDERS: ATTEND Internal Medicine Gastroenterology
DX: Z12.11 Encounter for screening for malignant neoplasm of colon (principal); D12.0 Benign neoplasm of cecum; Z80.0 Family history of malignant neoplasm of digestive organs; I10 Essential (primary) hypertension; Z79.899 Other long term (current) drug therapy; F17.200 Nicotine dependence, unspecified, uncomplicated
CPT/HCPCS: 81025; 88305; 45385; J2704

== ENCOUNTER → 2023-12-18 | Outpatient (CLI) | payer OTHER ==
--- NOTE | 2023-12-19 10:31 | MM ---
Reason for Exam: Screening (asymptomatic). Last mammogram was performed 5 year(s) and 5 month(s) ago. Patient History: Menarche at age 15. First Full-Term at age 25. Last menstrual period: 11/24/2023 Risk Values: Shania 5 year model risk: 0.9%. NCI Lifetime model risk: 7.9%. Prior Study Comparison: 07/28/2017 Bilateral Screening Mammogram, [facility]. 07/28/2017 Bilateral Diagnostic Mammogram, [facility]. 08/06/2018 Bilateral Diagnostic Mammogram, [facility]. Tissue Density: The breast tissue is heterogeneously dense. This may lower the sensitivity of mammography. Findings: Analyzed By CAD. There is no suspicious group of microcalcifications or new suspicious mass in either breast. Overall Assessment: Benign, BI-RAD 2 Management: Screening Mammogram of both breasts in 1 year. . Patient should continue monthly self-breast exams. A clinical breast exam by your physician is recommended on an annual basis. This exam should not preclude additional follow-up of suspicious palpable abnormalities. Note on Shania scores and lifetime risk: 1. A Shania score greater than 3% is considered moderate risk. If this is the case, consider specialist referral to assess eligibility for a risk reducing agent. 2. If overall lifetime risk for the development of breast cancer is 20% or higher, the patient may qualify for future screening with alternating mammogram and breast MRI. Electronically signed and approved by: Marty Polk M.D. Radiologis
== END | disposition home or self-care (01) ==
LOC: RADMAMWWP 07:50
PROVIDERS: ATTEND Family Medicine
DX: Z12.39 Encounter for other screening for malignant neoplasm of breast (principal)
CPT/HCPCS: 77067

== ENCOUNTER 2024-08-25 05:57 | Emergency (ER) | payer BC, OTHER ==
--- NOTE | 2024-08-25 06:49 | ED ---
ENT HPI - General Chief complaint: Dental/Oral Stated complaint: abnormal labs Time Seen by Provider: 08/25/24 06:16 Source: patient, RN notes reviewed Mode of arrival: ambulatory Limitations: no limitations - History of Present Illness Initial comments: 53-year-old female presents emergency department complaint of left-sided facial pain, swelling, sore throat. Patient states she started with upper respiratory viral infection last week she states that she got worse in which she presented back to urgent care and was placed on doxycycline and steroids for which she told was a bacterial infection because she was complaining of ear pain. Patient states that she has had worsening left lower dental pain which has had a prior root canal in this area she states it is more painful, swelling and is painful to swallow. - Related Data Home Medications Medication Instructions Recorded Confirmed Milligan-3 Fatty Acids/Fish Oil [Fish 1 cap PO DAILY 03/27/17 08/02/22 Oil 1,000 mg Softgel] Magnesium 200 mg PO HS 07/18/17 08/02/22 Metoprolol Succinate [Toprol XL] 50 mg PO BID 08/02/22 08/02/22 Venlafaxine HCl [Effexor XR] 150 mg PO DAILY 08/02/22 08/02/22 Previous Rx's Medication Instructions Recorded Amoxic-Pot Clav 875-125Mg 1 tab PO Q12HR #20 tab 08/25/24 [Augmentin 875-125] Allergies Allergy/AdvReac Type Severity Reaction Status Date / Time No Known Allergies Allergy Verified 08/25/24 06:10 Review of Systems ROS Statement: Those systems with pertinent positive or pertinent negative responses have been documented in the HPI. ROS Other: All systems not noted in ROS Statement are negative. Past Medical History Past Medical History: No Reported History Additional Past Medical History / Comment(s): ALOPEICA, UTI History of Any Multi-Drug Resistant Organisms: None Reported Past Surgical History: Appendectomy, Tubal Ligation Additional Past Surgical History / Comment(s): WISDOM TEETH EXTRACTED, LEFT SHOULDER SURGERY Past Anesthesia/Blood Transfusion Reactions: No Reported Reaction Past Psychological History: Anxiety Smoking Status: Former smoker Past Alcohol Use History: None Reported Past Drug Use History: None Reported - Past Family History Father History Unknown: Yes Mother History Unknown: Yes Family Medical History: Cancer Additional Family Medical History / Comment(s): COLON CANCER General Exam Limitations: no limitations General appearance: alert, in no apparent distress Head exam: Present: atraumatic, normocephalic, normal inspection Eye exam: Present: normal appearance, PERRL, EOMI. Absent: scleral icterus, conjunctival injection, periorbital swelling ENT exam: Present: mucous membranes dry, mucous membranes moist, TM's normal bilaterally. Absent: normal oropharynx (swelling along the left side of the face, there is no drainable abscess) Neck exam: Present: normal inspection, full ROM. Absent: tenderness, meningismus, lymphadenopathy Respiratory exam: Present: normal lung sounds bilaterally. Absent: respiratory distress, wheezes, rales, rhonchi, stridor Cardiovascular Exam: Present: regular rate, normal rhythm, normal heart sounds. Absent: systolic murmur, diastolic murmur, rubs, gallop, clicks GI/Abdominal exam: Present: soft, normal bowel sounds. Absent: distended, t enderness, guarding, rebound, rigid Course Vital Signs 08/25/24 08/25/24 06:08 06:31 Temperature 97.8 F 100 F H Pulse Rate 87 77 Respiratory 18 16 Rate Blood Pressure 148/104 141/92 O2 Sat by Pulse 100 96 Oximetry Medical Decision Making - Medical Decision Making Was pt. sent in by a medical professional or institution (, PA, CHIP APPLYING MACHINE TENDER, urgent care, hospital, or intermediate...) When possible be specific @ -No Did you speak to anyone other than the patient for history (EMS, parent, family, police, friend...)? What history was obtained from this source @ -No Did you review nursing and triage notes (agree or disagree)? Why? @ -I reviewed and agree with nursing and triage notes Were old charts reviewed (outside hosp., previous admission, EMS record, old EKG, old radiological studies, urgent care reports/EKG's, intermediate records)? Report findings @ -No old charts were reviewed Differential Diagnosis (chest pain, altered mental status, abdominal pain women, abdominal pain men, vaginal bleeding, weakness, fever, dyspnea, syncope, headache, dizziness, GI bleed, back pain, seizure, CVA, palpatations, mental health, musculoskeletal)? @ -Dental infection, dental abscess, sialadenitis, strep throat EKG interpreted by me (3pts min.). @ -None X-rays interpreted by me (1pt min.). @ -None done CT interpreted by me (1pt min.). @ -CT soft tissue neck showing single lymph node correlate for cellulitis no drainable abscess U/S interpreted by me (1pt. min.). @ -None done What testing was considered but not performed or refused? (CT, X-rays, U/S, labs)? Why? @ -None What meds were considered but not given or refused? Why? @ -None Did you discuss the management of the patient with other professionals (professionals i.e. , PA, CHIP APPLYING MACHINE TENDER, lab, RT, psych nurse, social work lecturer, self defense instructor, teacher, administrative services officer, child welfare caseworker)? Give summary @ -No Was smoking cessation discussed for >3mins.? @ -No Was critical care preformed (if so, how long)? @ -No Were there social determinants of health that impacted care today? How? (Homelessness, low income, unemployed, alcoholism, drug addiction, transportation, low edu. Level, literacy, decrease access to med. care, long-term, rehab)? @ -No Was there de-escalation of care discussed even if they declined (Discuss DNR or withdrawal of care, Hospice)? DNR status @ -No What co-morbidities impacted this encounter? (DM, HTN, Smoking, COPD, CAD, Cancer, CVA, ARF, Chemo, Hep., AIDS, mental health diagnosis, sleep apnea, morbid obesity)? @ -None Was patient admitted / discharged? Hospital course, mention meds given and route, prescriptions, significant lab abnormalities, going to OR and other pertinent info. @ -Discharge patient presented for dental pain, ear pain facial swelling. Patient has underlying infection has been on doxycycline but will be switched to Augmentin. Undiagnosed new problem with uncertain prognosis? @ -No Drug Therapy requiring intensive monitoring for toxicity (Heparin, Nitro, Insulin, Cardizem)? @ -No Were any procedures done? @ -No Diagnosis/symptom? @ -Dental infection Acute, or Chronic, or Acute on Chronic? @ -Acute Uncomplicated (without systemic symptoms) or Complicated (systemic symptoms)? @ -Complicated Side effects of treatment? @ -No Exacerbation, Progression, or Severe Exacerbation? @ -No Poses a threat to life or bodily function? How? (Chest pain, USA, MT, pneumonia, PE, COPD, DKA, ARF, appy, cholecystitis, CVA, Diverticulitis, Homicidal, Suicidal, threat to staff... and all critical care pts) @ -No - Lab Data Result diagrams: 08/25/24 06:54 08/25/24 06:54 Lab Results 08/25/24 08/25/24 08/25/24 Range/Units 06:54 06:54 06:54 WBC 11.4 H (3.8-10.6) k/uL RBC 4.43 (3.80-5.40) m/uL Hgb 13.1 (11.4-16.0) gm/dL Hct 39.8 (34.0-46.0) % MCV 89.9 (80.0-100.0) fL MCH 29.6 (25.0-35.0) pg MCHC 32.9 (31.0-37.0) g/dL RDW 13.5 (11.5-15.5) % Plt Count 401 (150-450) k/uL MPV 7.6 Neutrophils % 67 % Lymphocytes % 21 % Monocytes % 7 % Eosinophils % 2 % Basophils % 1 % Neutrophils # 7.6 (1.3-7.7) k/uL Lymphocytes # 2.3 (1.0-4.8) k/uL Monocytes # 0.8 (0-1.0) k/uL Eosinophils # 0.2 (0-0.7) k/uL Basophils # 0.1 (0-0.2) k/uL Sodium 138 (137-145) mmol/L Potassium 3.8 (3.5-5.1) mmol/L Chloride 102 (98-107) mmol/L Carbon Dioxide 29 (22-30) mmol/L Anion Gap 7 mmol/L BUN 10 (7-17) mg/dL Creatinine 0.57 (0.52-1.04) mg/dL Est GFR (CKD-EPI)AfAm >90 (>60 ml/min/1.73 sqM) Est GFR (CKD-EPI)NonAf >90 (>60 ml/min/1.73 sqM) Glucose 102 H (74-99) mg/dL Calcium 9.5 (8.4-10.2) mg/dL Total Bilirubin 0.3 (0.2-1.3) mg/dL AST 27 (14-36) U/L ALT 21 (4-34) U/L Alkaline Phosphatase 60 (38-126) U/L Total Protein 6.6 (6.3-8.2) g/dL Albumin 4.1 (3.5-5.0) g/dL Group A Strep (PCR) NOT DETECTED (Not Detectd) Disposition Clinical Impression: Dental infection, Lymphadenopathy Disposition: HOME SELF-CARE Condition: Stable Instructions (If sedation given, give patient instructions): Lymphadenopathy (ED) Additional Instructions: Please return to the Emergency Department if symptoms worsen or any other concerns. Prescriptions: Amoxic-Pot Clav 875-125Mg [Augmentin 875-125] 1 tab PO Q12HR #20 tab Is patient prescribed a controlled substance at d/c from ED?: No Referrals: Jose Hooper DO [Primary Care Provider] - 1-2 days Time of Disposition: 07:54
[2024-08-25 07:01] LABS: Basophils # (A) 0.1 k/uL (0-0.2); Basophils % (A) 1 %; Eosinophils # (A) 0.2 k/uL (0-0.7); Eosinophils % (A) 2 %; HCT 39.8 % (34.0-46.0); HGB 13.1 gm/dL (11.4-16.0); Lymphocytes # (A) 2.3 k/uL (1.0-4.8); Lymphocytes % (A) 21 %; MCH 29.6 pg (25.0-35.0); MCHC 32.9 g/dL (31.0-37.0); MCV 89.9 fL (80.0-100.0); Mean Platelet Volume 7.6; Monocytes # (A) 0.8 k/uL (0-1.0); Monocytes % (A) 7 %; Neutrophils # (A) 7.6 k/uL (1.3-7.7); Neutrophils % (A) 67 %; Platelet Count 401 k/uL (150-450); RBC 4.43 m/uL (3.80-5.40); RDW 13.5 % (11.5-15.5); WBC 11.4 k/uL (3.8-10.6)
[2024-08-25 07:12] LABS: ALT 21 U/L (4-34); AST 27 U/L (14-36); African American GFR (CKD) >90 (>60 ml/min/1.73 sqM); Albumin 4.1 g/dL (3.5-5.0); Alkaline Phosphatase 60 U/L (38-126); Anion Gap 7 mmol/L; Blood Urea Nitrogen 10 mg/dL (7-17); Calcium 9.5 mg/dL (8.4-10.2); Carbon Dioxide 29 mmol/L (22-30); Chloride 102 mmol/L (98-107); Glucose 102 mg/dL (74-99); Non-African American GFR(CKD) >90 (>60 ml/min/1.73 sqM); Potassium 3.8 mmol/L (3.5-5.1); Sodium 138 mmol/L (137-145); Total Bilirubin 0.3 mg/dL (0.2-1.3); Total Protein 6.6 g/dL (6.3-8.2)
[2024-08-25] MEDS: SODIUM CHLORIDE 0.9% 1,000 ML IV ONE (07:17)
[2024-08-25] MEDS: KETOROLAC 15 MG/ML 1 ML VIAL IVP STA (07:17)
--- NOTE | 2024-08-25 07:45 | CT ---
EXAMINATION TYPE: CT soft tissue neck w con CT DLP: 268.7 mGycm, Automated exposure control for dose reduction was used. DATE OF EXAM: 08/25/2024 7:35 AM COMPARISON: None. CLINICAL INDICATION: Female, 53 years old with history of left sided pain; PHH, Left sided pain, Sinu s and ear pressure TECHNIQUE: Standard enhanced CT of the neck. Axial sections with coronal and sagittal reformats were obtained. Contrast used:100 ml mL of Isovue 300 with IV Contrast, (None if empty) Oral contrast used: (None if empty) FINDINGS: Brain: Visualized portions are grossly unremarkable. Orbits: Unremarkable Sinuses: Grossly unremarkable. Spaces of the neck: Mild Fat stranding changes along the chin most pronounced on the left. Nearby lym ph node as described below. Musculoskeletal: No acute osseous pathology. Lymph nodes: Left anterior 10 R measure up to 9 mm in short axis. Vascular structures: Visualized major arteries are patent without evidence of aneurysm. Thoracic Inlet/airway: Airway is patent. The lung apices are clear. Soft tissues/Thyroid: Thyroid and remainder of the soft tissues are unremarkable. Other: none. IMPRESSION No evidence for significant paranasal sinus disease. The temporal bone and mastoid air cells are rela tively clear. Single prominent lymph node with formation changes along the chin. No organizing fluid collection. Correlate for cellulitis. [facility], , 08/25/2024 7:42 AM
[2024-08-25 08:15] VITALS: BP 142/84; PULSE 78; RESP 20; TEMP 99.6
== END 2024-08-25 08:18 | disposition home or self-care (01) ==
LOC: EC 05:57
DX: K04.7 Periapical abscess without sinus (principal); R59.1 Generalized enlarged lymph nodes; Z87.891 Personal history of nicotine dependence
CPT/HCPCS: 36415; 87651; 80053; 85025; 70491; 99284; 96374; 96361; J1885; Q9967

== ENCOUNTER 2024-09-17 03:05 | Emergency (ER) | payer BC ==
[2024-09-17 03:10] VITALS: TEMP 97.7
--- NOTE | 2024-09-17 03:22 | ED ---
General Adult HPI - General Chief complaint: Headache Stated complaint: Headache Time Seen by Provider: 09/17/24 03:11 Source: patient Mode of arrival: ambulatory Limitations: no limitations - History of Present Illness Initial comments: This is a pleasant 53-year-old female past medical Struve hypertension on metoprolol presenting today for sudden onset severe headache and neck pain. Patient was having intercourse with her this evening around 11:00 when she began having right sided neck pain. Patient did orgasm and afterwards headache became more severe. She took 800 mg ibuprofen and went to bed. She woke up approximately 2 AM with a headache not improved and 10 out of 10. Endorses intermittent blurred vision. In addition to palpitations. She denied slurred speech, numbness, weakness, chest pain, difficulty in breathing. She dominguez s no history of headaches. No fevers chills or recent illness - Related Data Home Medications Medication Instructions Recorded Confirmed [place]-3 Fatty Acids/Fish Oil [Fish 1 cap PO DAILY 03/27/17 08/02/22 Oil 1,000 mg Softgel] Magnesium 200 mg PO HS 07/18/17 08/02/22 Metoprolol Succinate [Toprol XL] 50 mg PO BID 08/02/22 08/02/22 Venlafaxine HCl [Effexor XR] 150 mg PO DAILY 08/02/22 08/02/22 Previous Rx's Medication Instructions Recorded Amoxic-Pot Clav 875-125Mg 1 tab PO Q12HR #20 tab 08/25/24 [Augmentin 875-125] Allergies Allergy/AdvReac Type Severity Reaction Status Date / Time No Known Allergies Allergy Verified 09/17/24 03:10 Review of Systems ROS Statement: Those systems with pertinent positive or pertinent negative responses have been documented in the HPI. ROS Other: All systems not noted in ROS Statement are negative. Past Medical History Past Medical History: No Reported History Additional Past Medical History / Comment(s): ALOPEICA, UTI History of Any Multi-Drug Resistant Organisms: None Reported Past Surgical History: Appendectomy, Tubal Ligation Additional Past Surgical History / Comment(s): WISDOM TEETH EXTRACTED, LEFT SHOULDER SURGERY Past Anesthesia/Blood Transfusion Reactions: No Reported Reaction Past Psychological History: Anxiety Smoking Status: Former smoker Past Alcohol Use History: None Reported Past Drug Use History: None Reported - Past Family History Father History Unknown: Yes Mother History Unknown: Yes Family Medical History: Cancer Additional Family Medical History / Comment(s): COLON CANCER General Exam - General Exam Comments Initial Comments: PE: CONSTITUTIONAL: no apparent distress, well appearing SKIN: Warm, dry, no jaundice, hives or petechiae EYES: Pupils are equally round, extraocular movements intact without nystagmus, clear conjunctiva, non-icteric sclera HENT: Normocephalic, atraumatic, moist mucus membranes, oropharynx clear without exudates NECK: , Full range of motion, normal appearance PULMONARY: Clear to auscultation without wheezes, rhonchi, or rales, normal excursion, no accessory muscle use and no stridor CARDIOVASCULAR: Regular rate, rhythm, normal S1 and S2. No appreciated murmurs, rubs or gallops. Strong radial pulses with intact distal perfusion. No lower extremity edema GASTROINTESTINAL: Soft, active bowel sounds throughout, non-tender, non-d istended, no palpable masses, no rebound or guarding. No hepatosplenomegaly GENITOURINARY: MUSCULOSKELETAL: Extremities have no gross deformity, no edema, redness, or swelling. No calf swelling NEUROLOGIC:_a/o x 3, GCS 15, normal mentation and speech. Moves all extremities x 4 without motor or sensory deficit, cranial nerves: II (visual ortiz without defects), III, IV and (extraocular movements are intact, pupils are equal with normal reaction to light), V (intact facial sensation and jaw opening), VII (no facial droop), IX and X (normal palate movement, midline uvula, normal voice), XI (symmetrical shoulder shrug ), XII (midline tongue protrusion). Motor strength is 5/5 in all extremities. No abnormal movements. Normal muscle tone. Sensation to light touch is intact bilaterally. No cerebellar signs ([id number], [id number] normal) PSYCHIATRIC:_normal mood and affect, thought process is clear and linear Limitations: no limitations Course Vital Signs 09/17/24 09/17/24 09/17/24 03:08 04:37 05:43 Temperature 97.7 F Pulse Rate 81 73 79 Respiratory 18 16 16 Rate Blood Pressure 156/92 114/85 104/86 O2 Sat by Pulse 97 97 97 Oximetry Medical Decision Making - Medical Decision Making Was pt. sent in by a medical professional or institution (Dr., PA, PHOTOGRAPHIC LABORATORY SUPERVISOR, urgent care, hospital, or detention...) When possible be specific @ -No Did you speak to anyone other than the patient for history (EMS, parent, family, police, friend...)? What history was obtained from this source @ -No Did you review nursing and triage notes (agree or disagree)? Why? @ -I reviewed and agree with nursing and triage notes Were old charts reviewed (outside hosp., previous admission, EMS record, old EKG, old radiological studies, urgent care reports/EKG's, detention records)? Report findings @ -Medical records reviewed Differential Diagnosis (chest pain, altered mental status, abdominal pain women, abdominal pain men, vaginal bleeding, weakness, fever, dyspnea, syncope, headache, dizziness, GI bleed, back pain, seizure, CVA, palpatations, mental health, musculoskeletal)? @ -Differential Headache: Migraine, tension, cluster, carbon monoxide, central venous thrombosis, pension karma temporal arteritis, acute closure glaucoma, intercranial hemorrhage, mastoiditis, sinusitis, head injury, this is not meant to be an all-inclusive list. EKG interpreted by me (3pts min.). @ -Sinus rhythm, rate 73 bpm, DC interval 134 ms, QRS duration 113 ms, QT/QTc 4 2 5/430 ms, normal axis, no ST elevations or depressions X-rays interpreted by me (1pt min.). @ -None done CT interpreted by me (1pt min.). @ -No large subarachnoid hemorrhage or mass, no dissection U/S interpreted by me (1pt. min.). @ -None done What testing was considered but not performed or refused? (CT, X-rays, U/S, labs)? Why? @ -None What meds were considered but not given or refused? Why? @ -None Did you discuss the management of the patient with other professionals (pro fessionals i.e. TERESSA Robison, PHOTOGRAPHIC LABORATORY SUPERVISOR, lab, RT, psych nurse, social media intern, hot plate plywood press offbearer, teacher, systems support officer, shoe caser)? Give summary @ -No Was smoking cessation discussed for >3mins.? @ -No Was critical care preformed (if so, how long)? @ -Yes 35 minutes Were there social determinants of health that impacted care today? How? (Homelessness, low income, unemployed, alcoholism, drug addiction, transportat ion, low edu. Level, literacy, decrease access to med. care, usp, rehab)? @ -No Was there de-escalation of care discussed even if they declined (Discuss DNR or withdrawal of care, Hospice)? @ -No What co-morbidities impacted this encounter? (DM, HTN, Smoking, COPD, CAD, Cancer, CVA, ARF, Chemo, Hep., AIDS, mental health diagnosis, sleep apnea, morbid obesity)? @ -None Was patient admitted / discharged? Hospital course, mention meds given and route, prescriptions, significant lab abnormalities, going to OR and other pertinent info. @ -Transfer to [facility] Pleasant 53-year-old female history hypertension that began having severe onset post coital headache and neck pain. Patient seen and assessed on rooming. Mildly Hypertensive, SBP 156. No focal neurologic deficits on exam. Due to no history headaches, severe nature of her headache a stat CT brain CTA were ordered. Patient transferred to CT. No obvious evidence of hemorrhage however was called by Dr. Harrell, radiologist, who notes small area on right side of brain that is area of possible hemorrhage in addition, to CTA there is potentially a small 2 mm aneurysm of the RCA. Recommends LP vs MRI. Due to patient's concerni ng history, severity of headache and findings plan for transfer to [facility] where neurosurgery is available, transfer will not be delayed for LP and results of LP. Nicardipine, ordered, though SBP 114. Updated patient to findings, plan for transfer. Morphine ordered for additional pain control as headache is not improving. Patient remains neurologically intact. She does not take any blood thinners. CT read as query 2 mm anterior communicating artery aneurysm given question of subarachnoid hemorrhage on Noncon CT could represent ruptured aneurysm. CT significant for query slight hyperdensity within the sylvian fissures especially on the right may represent small mount of subarachnoid hemorrhage versus small foci. Discussed case w/ Dr. Gray. ER physician at [facility]. Context with patient for transfer Patient agreeable with plan for transfer. Undiagnosed new problem with uncertain prognosis? @ -No Drug Therapy requiring intensive monitoring for toxicity (Heparin, Nitro, Insulin, Cardizem)? @ -Nicardipine Were any procedures done? @ -No Diagnosis/symptom? @ -Subarachnoid hemorrhage Acute, or Chronic, or Acute on Chronic? @ -Acute Uncomplicated (without systemic symptoms) or Complicated (systemic symptoms)? @ -Complicated Side effects of treatment? @ -No Exacerbation, Progression, or Severe Exacerbation? @ -No Poses a threat to life or bodily function? How? (Chest pain, USA, NE, pneumonia, PE, COPD, DKA, ARF, appy, cholecystitis, CVA, Diverticulitis, Homicidal, Suicidal, threat to staff... and all critical care pts) @ -Yes - Lab Data Result diagrams: 09/17/24 03:23 09/17/24 03:23 Lab Results 09/17/24 09/17/24 09/17/24 Range/Units 03:23 03:23 03:23 WBC 6.4 (3.8-10.6) k/uL RBC 4.60 (3.80-5.40) m/uL Hgb 13.2 (11.4-16.0) gm/dL Hct 41.2 (34.0-46.0) % MCV 89.6 (80.0-100.0) fL MCH 28.7 (25.0-35.0) pg MCHC 32.1 (31.0-37.0) g/dL RDW 12.7 (11.5-15.5) % Plt Count 378 (150-450) k/uL MPV 7.0 Neutrophils % 56 % Lymphocytes % 28 % Monocytes % 8 % Eosinophils % 4 % Basophils % 1 % Neutrophils # 3.5 (1.3-7.7) k/uL Lymphocytes # 1.8 (1.0-4.8) k/uL Monocytes # 0.5 (0-1.0) k/uL Eosinophils # 0.3 (0-0.7) k/uL Basophils # 0.1 (0-0.2) k/uL PT 10.3 (10.0-12.5) sec INR 0.9 (<1.2) APTT 24.8 (22.0-30.0) sec Sodium 136 L (137-145) mmol/L Potassium 4.2 (3.5-5.1) mmol/L Chloride 102 (98-107) mmol/L Carbon Dioxide 23 (22-30) mmol/L Anion Gap 11 mmol/L BUN 16 (7-17) mg/dL Creatinine 0.62 (0.52-1.04) mg/dL Est GFR (CKD-EPI)AfAm >90 (>60 ml/min/1.73 sqM) Est GFR (CKD-EPI)NonAf >90 (>60 ml/min/1.73 sqM) Glucose 120 H (74-99) mg/dL Calcium 10.3 H (8.4-10.2) mg/dL Total Bilirubin 0.6 (0.2-1.3) mg/dL AST 45 H (14-36) U/L ALT 42 H (4-34) U/L Alkaline Phosphatase 69 (38-126) U/L Troponin I (0.000-0.034) ng/mL Total Protein 8.1 (6.3-8.2) g/dL Albumin 4.9 (3.5-5.0) g/dL 09/17/24 Range/Units 03:23 WBC (3.8-10.6) k/uL RBC (3.80-5.40) m/uL Hgb (11.4-16.0) gm/dL Hct (34.0-46.0) % MCV (80.0-100.0) fL MCH (25.0-35.0) pg MCHC (31.0-37.0) g/dL RDW (11.5-15.5) % Plt Count (150-450) k/uL MPV Neutrophils % % Lymphocytes % % Monocytes % % Eosinophils % % Basophils % % Neutrophils # (1.3-7.7) k/uL Lymphocytes # (1.0-4.8) k/uL Monocytes # (0-1.0) k/uL Eosinophils # (0-0.7) k/uL Basophils # (0-0.2) k/uL PT (10.0-12.5) sec INR (<1.2) APTT (22.0-30.0) sec Sodium (137-145) mmol/L Potassium (3.5-5.1) mmol/L Chloride (98-107) mmol/L Carbon Dioxide (22-30) mmol/L Anion Gap mmol/L BUN (7-17) mg/dL Creatinine (0.52-1.04) mg/dL Est GFR (CKD-EPI)AfAm (>60 ml/min/1.73 sqM) Est GFR (CKD-EPI)NonAf (>60 ml/min/1.73 sqM) Glucose (74-99) mg/dL Calcium (8.4-10.2) mg/dL Total Bilirubin (0.2-1.3) mg/dL AST (14-36) U/L ALT (4-34) U/L Alkaline Phosphatase (38-126) U/L Troponin I <0.012 (0.000-0.034) ng/mL Total Protein (6.3-8.2) g/dL Albumin (3.5-5.0) g/dL Disposition Clinical Impression: Subarachnoid bleed Disposition: OTHER INSTITUTION NOT DEFINED Condition: Stable Referrals: Jose Hooper DO [Primary Care Provider] - 1-2 days - Out of Hospital Transfer - Req. Specs Out of Hospital Transfer - Requested Specifics: Other Emergency Center
[2024-09-17 03:39] LABS: Basophils # (A) 0.1 k/uL (0-0.2); Basophils % (A) 1 %; Eosinophils # (A) 0.3 k/uL (0-0.7); Eosinophils % (A) 4 %; HCT 41.2 % (34.0-46.0); HGB 13.2 gm/dL (11.4-16.0); Lymphocytes # (A) 1.8 k/uL (1.0-4.8); Lymphocytes % (A) 28 %; MCH 28.7 pg (25.0-35.0); MCHC 32.1 g/dL (31.0-37.0); MCV 89.6 fL (80.0-100.0); Monocytes # (A) 0.5 k/uL (0-1.0); Monocytes % (A) 8 %; Neutrophils # (A) 3.5 k/uL (1.3-7.7); Neutrophils % (A) 56 %; Platelet Count 378 k/uL (150-450); RDW 12.7 % (11.5-15.5); WBC 6.4 k/uL (3.8-10.6)
[2024-09-17] MEDS: METOCLOPRAMIDE 5 MG/ML 2 ML VIAL IVP STA (03:47)
[2024-09-17] MEDS: ACETAMINOPHEN TAB 500 MG TAB PO STA (03:47)
[2024-09-17] MEDS: SODIUM CHLORIDE 0.9% 1,000 ML IV STA (03:47)
[2024-09-17] MEDS: diphenhydrAMINE 50 MG/ML 1 ML VIAL IVP STA (03:47)
[2024-09-17 03:49] LABS: ALT 42 U/L (4-34); AST 45 U/L (14-36); African American GFR (CKD) >90 (>60 ml/min/1.73 sqM); Albumin 4.9 g/dL (3.5-5.0); Alkaline Phosphatase 69 U/L (38-126); Anion Gap 11 mmol/L; Blood Urea Nitrogen 16 mg/dL (7-17); Calcium 10.3 mg/dL (8.4-10.2); Carbon Dioxide 23 mmol/L (22-30); Chloride 102 mmol/L (98-107); Glucose 120 mg/dL (74-99); Non-African American GFR(CKD) >90 (>60 ml/min/1.73 sqM); Potassium 4.2 mmol/L (3.5-5.1); Sodium 136 mmol/L (137-145); Total Bilirubin 0.6 mg/dL (0.2-1.3); Total Protein 8.1 g/dL (6.3-8.2)
[2024-09-17 04:01] LABS: INR 0.9 (<1.2); Partial Thromboplastin Time 24.8 sec (22.0-30.0); Prothrombin Time 10.3 sec (10.0-12.5)
--- NOTE | 2024-09-17 04:05 | CT ---
EXAM: CT Head Without Intravenous Contrast CLINICAL HISTORY: ITS.REASON CT Reason: severe NORMAN, neck pain, post exertion TECHNIQUE: Axial computed tomography images of the head/brain without intravenous contrast. CTDI is 48.8 mGy and DLP is 1085 mGy-cm. This CT exam was performed using one or more of the following dose reduction techniques: automated exposure control, adjustment of the mA and/or kV according to patient size, and/or use of iterative reconstruction technique. COMPARISON: No relevant prior studies available. FINDINGS: Brain: Query slight hyperdensity within the sylvian fissures, especially on the right. No significant white matter disease. Ventricles: Unremarkable. No ventriculomegaly. Bones/joints: Unremarkable. No acute fracture. Soft tissues: Unremarkable. Sinuses: Unremarkable as visualized. No acute sinusitis. Mastoid air cells: Unremarkable as visualized. No mastoid effusion. IMPRESSION: Query slight hyperdensity within the sylvian fissures, especially on the right. May represent small amount of subarachnoid hemorrhage versus small sulci. Correlate with priors if available and consider follow-up. <MYCVCSECTION> Communications: 09/17/24 04:16 Call Doctor Regarding Above results, called Dr. Wolf on 09/17 04:16 (-05:00)
--- NOTE | 2024-09-17 04:28 | CT ---
EXAM: CT Angiography Head and Neck With Intravenous Contrast CLINICAL HISTORY: ITS.REASON CT Reason: severe headache, neck pain post exertion TECHNIQUE: [place]/head and neck CT angiography protocol performed with intravenous contrast. CTDI is 48.8 mGy and DLP is 1085 mGy-cm. CTDI is 9.7 mGy and DLP is 438.3 mGy-cm. This CT exam was performed using one or more of the following dose reduction techniques: automated exposure control, adjustment of the mA and/or kV according to patient size, and/or use of iterative reconstruction technique. MIP reconstructed images were created and reviewed. COMPARISON: Head CT today. FINDINGS: HEAD: Right anterior cerebral artery: Unremarkable. No occlusion or significant stenosis. No aneurysm. Right middle cerebral artery: Unremarkable. No occlusion or significant stenosis. No aneurysm. Right posterior cerebral artery: Unremarkable. No occlusion or significant stenosis. No aneurysm. Right intracranial internal carotid artery: Unremarkable. No significant stenosis. No dissection or occlusion. Right intracranial vertebral artery: Unremarkable. No significant stenosis. No dissection or occlusion. Left anterior cerebral artery: Hypoplastic or absent left A1 segment. Somewhat limited evaluation with venous contamination. 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 Left middle cerebral artery: Unremarkable. No occlusion or significant stenosis. No aneurysm. Left posterior cerebral artery: Unremarkable. No occlusion or significant stenosis. No aneurysm. Left intracranial internal carotid artery: Unremarkable. No significant stenosis. No dissection or occlusion. Left intracranial vertebral artery: Unremarkable. No significant stenosis. No dissection or occlusion. Basilar artery: Unremarkable. No occlusion or significant stenosis. No aneurysm. Other vasculature: No vascular malformation. NECK: Right common carotid artery: Unremarkable. No significant stenosis. No dissection or occlusion. Right extracranial internal carotid artery: Unremarkable. No significant stenosis. No dissection or occlusion. Right external carotid artery: Unremarkable. No occlusion. Right extracranial vertebral artery: Unremarkable. No significant stenosis. No dissection or occlusion. Left common carotid artery: Unremarkable. No significant stenosis. No dissection or occlusion. Left extracranial internal carotid artery: Unremarkable. No significant stenosis. No dissection or occlusion. Left external carotid artery: Unremarkable. No occlusion. Left extracranial vertebral artery: Unremarkable. No significant stenosis. No dissection or occlusion. Aorta: Left vertebral artery arises directly from the aorta, variant anatomy. Lung apices: Unremarkable as visualized. HEAD and NECK: Bones/joints: Unremarkable. No discrete lytic or blastic abnormalities. Soft tissues: Unremarkable. CAROTID STENOSIS REFERENCE USING NASCET CRITERIA: % ICA stenosis = (1 - narrowest ICA diameter/diameter of distal cervical ICA) x 100. Mild - <50% stenosis. Moderate - 50-69% stenosis. Severe - 70-94% stenosis. Near occlusion - 95-99% stenosis. Occluded - 100% stenosis. 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 Given question of subarachnoid hemorrhage on the noncontrast head CT, findings could represent a ruptured aneurysm. Correlate with priors if available and consider follow-up/further workup with LP/MRI/MRA.
[2024-09-17] MEDS: ONDANSETRON 4 MG/2 ML VIAL IVP STA (04:33)
[2024-09-17] MEDS: MORPHINE SULFATE 4 MG/ML SYRINGE IVP STA (04:33)
[2024-09-17 04:37] VITALS: RESP 16
[2024-09-17 05:44] VITALS: BP 104/86; PULSE 79
--- NOTE | 2024-09-17 05:44 | XR ---
EXAMINATION TYPE: XR chest 2V DATE OF EXAM: 09/17/2024 COMPARISON: Chest CT March 06, 2018 HISTORY: Difficulty in breathing. TECHNIQUE: Frontal and lateral views of the chest are obtained. FINDINGS: There is no suspicious new focal air space opacity, pleural effusion, or pneumothorax seen . The cardiac silhouette size is stable and within normal limits. The osseous structures are intac t. IMPRESSION: No acute process. [facility], , 09/17/2024 5:41 AM
[2024-09-17] MEDS: niCARdipine 20 MG in SODIUM CHLORIDE 0.9% 192 ML IV SCH (05:47)
== END 2024-09-17 05:48 | disposition other institution (70) ==
LOC: EC 03:05
DX: I60.9 Nontraumatic subarachnoid hemorrhage, unspecified (principal); F17.200 Nicotine dependence, unspecified, uncomplicated
CPT/HCPCS: 36415; 93005; 80053; 84484; 85025; 85610; 85730; 71046; 70496; 70450; 70498; 99291; 96374; 96375 ×3; 96361; J2270; J1200; J2765; J2405; Q9967

== ENCOUNTER 2024-11-12 12:41 | Emergency (ER) | payer BC ==
[2024-11-12 12:50] VITALS: PULSE 86; RESP 18
--- NOTE | 2024-11-12 13:12 | ED ---
General Adult HPI - General Chief complaint: Neuro Symptoms/Deficit Stated complaint: Blurred vision, racing heart, hypertension Time Seen by Provider: 11/12/24 12:59 Source: patient, RN notes reviewed Mode of arrival: ambulatory Limitations: no limitations - History of Present Illness Initial comments: Patient is a 54-year-old female present to the emergency department with concerns of headache. 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 Patient did work a full day yesterday which was her first day back and was very exhausted following this. This morning patient did have a mild headache, more so on the left side. Patient also had some blurry vision that improved when she rested. Patient also had some palpitations and did feel anxious and still does feel somewhat anxious. Patient is receptive to medication for this. No headache at this time. No confusion. No weakness. - Related Data Home Medications Medication Instructions Recorded Confirmed [place]-3 Fatty Acids/Fish Oil [Fish 1 cap PO DAILY 03/27/17 08/02/22 Oil 1,000 mg Softgel] Magnesium 200 mg PO HS 07/18/17 08/02/22 Metoprolol Succinate [Toprol XL] 50 mg PO BID 08/02/22 08/02/22 Venlafaxine HCl [Effexor XR] 150 mg PO DAILY 08/02/22 08/02/22 Previous Rx's Medication Instructions Recorded Amoxic-Pot Clav 875-125Mg 1 tab PO Q12HR #20 tab 08/25/24 [Augmentin 875-125] Allergies Allergy/AdvReac Type Severity Reaction Status Date / Time No Known Allergies Allergy Verified 11/12/24 12:44 Review of Systems ROS Statement: Those systems with pertinent positive or pertinent negative responses have been documented in the HPI. ROS Other: All systems not noted in ROS Statement are negative. Constitutional: Denies: fever Eyes: Reports: as per HPI. Denies: eye pain ENT: Denies: ear pain Respiratory: Denies: cough, dyspnea Cardiovascular: Reports: as per HPI, palpitations. Denies: chest pain Endocrine: Reports: fatigue Neurological: Reports: as per HPI, headache. Denies: weakness, numbness, confusion, abnormal gait Past Medical History Past Medical History: No Reported History Additional Past Medical History / Comment(s): Brain aneurysm. ALOPEICA, UTI History of Any Multi-Drug Resistant Organisms: None Reported Past Surgical History: Appendectomy, Tubal Ligation Additional Past Surgical History / Comment(s): WISDOM TEETH EXTRACTED, LEFT SHOULDER SURGERY Past Anesthesia/Blood Transfusion Reactions: No Reported Reaction Past Psychological History: Anxiety Smoking Status: Former smoker Past Alcohol Use History: None Reported Past Drug Use History: None Reported - Past Family History Father History Unknown: Yes Mother History Unknown: Yes Family Medical History: Cancer Additional Family Medical History / Comment(s): COLON CANCER General Exam Limitations: no limitations General appearance: alert, in no apparent distress Head exam: Present: normocephalic Eye exam: Present: normal appearance, PERRL, EOMI, other (Funduscopic exam wi thin normal limits bilateral) ENT exam: Present: normal oropharynx Neck exam: Present: normal inspection Respiratory exam: Present: normal lung sounds bilaterally Cardiovascular Exam: Present: regular rate, normal rhythm GI/Abdominal exam: Present: soft. Absent: tenderness Extremities exam: Present: normal inspection Neurological exam: Present: alert, oriented X3, CN II-XII intact. Absent: motor sensory deficit Expanded Neurological exam: Present: protecting the airway Patient oriented to: Present: person, place, time Speech: Present: fluid speech Cranial nerves: EOM's Intact: Normal, Facial Sensation: Normal Sensory exam: Upper Extremity Light Touch: Normal, Lower Extremity Light Touch: Normal Motor strength exam: RUE: 5, LUE: 5, RLE: 5, LLE: 5 Eye Response: (4) open spontaneously Motor Response: (6) obeys commands Verbal Response: (5) oriented Psychiatric exam: Present: normal affect, normal mood Skin exam: Present: normal color Course Vital Signs 11/12/24 12:44 Temperature 97.4 F L Pulse Rate 86 Respiratory 18 Rate Blood Pressure 148/92 O2 Sat by Pulse 99 Oximetry EKG Findings - EKG Results: EKG: interpreted by ERMD, sinus rhythm, normal axis, normal QRS, normal ST/T Medical Decision Making - Medical Decision Making Was pt. sent in by a medical professional or institution (, PA, PLANNING DIVISION SUPERINTENDENT, urgent care, hospital, or [facility]...) When possible be specific @ -No Did you speak to anyone other than the patient for history (EMS, parent, family, police, friend...)? What history was obtained from this source @ - is present helps provide history including patient's original symptoms on presentation Did you review nursing and triage notes (agree or disagree)? Why? @ -I reviewed and agree with nursing and triage notes Were old charts reviewed (outside hosp., previous admission, EMS record, old EKG, old radiological studies, urgent care reports/EKG's, [facility] records)? Report findings @ -No old charts were reviewed Differential Diagnosis (chest pain, altered mental status, abdominal pain women, abdominal pain men, vaginal bleeding, weakness, fever, dyspnea, syncope, headache, dizziness, GI bleed, back pain, seizure, CVA, palpatations, mental health, musculoskeletal)? @ -Differential Headache: Migraine, tension, cluster, carbon monoxide, central venous thrombosis, pension karma temporal arteritis, acute closure glaucoma, intercranial hemorrhage, mastoiditis, sinusitis, head injury, this is not meant to be an all-inclusive list. EKG interpreted by me (3pts min.). @ -As above X-rays interpreted by me (1pt min.). @ -None done CT interpreted by me (1pt min.). @ -CT and CT angio shows postsurgical change. U/S interpreted by me (1pt. min.). @ -None done What testing was considered but not performed or refused? (CT, X-rays, U/S, labs)? Why? @ -None What meds were considered but not given or refused? Why? @ -None Did you discuss the management of the patient with other professionals (professionals i.e. , PA, PLANNING DIVISION SUPERINTENDENT, lab, RT, psych nurse, social work job titles, senior mechanical estimator, teacher, sales and service officer, human services case manager)? Give summary @ -Case was earlier discussed with Dr. Beauchamp covering Dr. Hooper who felt if scans were negative patient could be safely discharged for follow-up Was smoking cessation discussed for >3mins.? @ -No Was critical care preformed (if so, how long)? @ -No Were there social determinants of health that impacted care today? How? (Homelessness, low income, unemployed, alcoholism, drug addiction, transportation, low edu. Level, literacy, decrease access to med. care, snf, rehab)? @ -No Was there de-escalation of care discussed even if they declined (Discuss DNR or withdrawal of care, Hospice)? DNR status @ -No What co-morbidities impacted this encounter? (DM, HTN, Smoking, COPD, CAD, Cancer, CVA, ARF, Chemo, Hep., AIDS, mental health diagnosis, sleep apnea, morbid obesity)? @ -History of recent aneurysm rupture and repair with coil Was patient admitted / discharged? Hospital course, mention meds given and route, prescriptions, significant lab abnormalities, going to OR and other pertinent info. @ -Patient presents with mild headache and some blurred vision that has resolved. CT and CTA unremarkable. Patient reevaluated and symptom-free. Patient we discharged with follow-up. Patient and family updated Undiagnosed new problem with uncertain prognosis? @ -No Drug Therapy requiring intensive monitoring for toxicity (Heparin, Nitro, Insulin, Cardizem)? @ -No Were any procedures done? @ -No Diagnosis/symptom? @ -Headache Acute, or Chronic, or Acute on Chronic? @ -Acute Uncomplicated (without systemic symptoms) or Complicated (systemic symptoms)? @ -Default Side effects of treatment? @ -No Exacerbation, Progression, or Severe Exacerbation? @ -No Poses a threat to life or bodily function? How? (Chest pain, USA, IA, pneumonia, PE, COPD, DKA, ARF, appy, cholecystitis, CVA, Diverticulitis, Homicidal, Suicidal, threat to staff... and all critical care pts) @ -No - Lab Data Result diagrams: 11/12/24 13:19 11/12/24 13:19 Lab Results 11/12/24 11/12/24 11/12/24 Range/Units 13:19 13:19 13:19 WBC 7.3 (3.8-10.6) k/uL RBC 4.64 (3.80-5.40) m/uL Hgb 13.5 (11.4-16.0) gm/dL Hct 41.9 (34.0-46.0) % MCV 90.3 (80.0-100.0) fL MCH 29.1 (25.0-35.0) pg MCHC 32.3 (31.0-37.0) g/dL RDW 14.0 (11.5-15.5) % Plt Count 316 (150-450) k/uL MPV 7.4 Neutrophils % 83 % Lymphocytes % 10 % Monocytes % 5 % Eosinophils % 2 % Basophils % 0 % Neutrophils # 6.1 (1.3-7.7) k/uL Lymphocytes # 0.7 L (1.0-4.8) k/uL Monocytes # 0.3 (0-1.0) k/uL Eosinophils # 0.1 (0-0.7) k/uL Basophils # 0.0 (0-0.2) k/uL PT 10.2 (10.0-12.5) sec INR 0.9 (<1.2) APTT 23.6 (22.0-30.0) sec Sodium 135 L (137-145) mmol/L Potassium 4.0 (3.5-5.1) mmol/L Chloride 98 (98-107) mmol/L Carbon Dioxide 24 (22-30) mmol/L Anion Gap 13 mmol/L BUN 7 (7-17) mg/dL Creatinine 0.51 L (0.52-1.04) mg/dL Est GFR (CKD-EPI)AfAm >90 (>60 ml/min/1.73 sqM) Est GFR (CKD-EPI)NonAf >90 (>60 ml/min/1.73 sqM) Glucose 143 H (74-99) mg/dL Calcium 9.4 (8.4-10.2) mg/dL Total Bilirubin 0.4 (0.2-1.3) mg/dL AST 35 (14-36) U/L ALT 31 (4-34) U/L Alkaline Phosphatase 57 (38-126) U/L Creatine Kinase 62 (30-135) U/L Total Protein 7.5 (6.3-8.2) g/dL Albumin 4.8 (3.5-5.0) g/dL Disposition Clinical Impression: Headache Disposition: HOME SELF-CARE Condition: Stable Instructions (If sedation given, give patient instructions): Acute Headache (ED) Additional Instructions: Please do follow-up with your primary care physician and your neurosurgeon in the next couple of days for recheck. Return for headache, weakness, visual changes, vomiting, worsening symptoms or any other concerns. Is patient prescribed a controlled substance at d/c from ED?: No Referrals: Jose Hooper DO [Primary Care Provider] - 1-2 days Time of Disposition: 14:54
[2024-11-12 13:29] LABS: Basophils % (A) 0 %; Eosinophils # (A) 0.1 k/uL (0-0.7); Eosinophils % (A) 2 %; HCT 41.9 % (34.0-46.0); HGB 13.5 gm/dL (11.4-16.0); Lymphocytes # (A) 0.7 k/uL (1.0-4.8); Lymphocytes % (A) 10 %; MCH 29.1 pg (25.0-35.0); MCHC 32.3 g/dL (31.0-37.0); MCV 90.3 fL (80.0-100.0); Mean Platelet Volume 7.4; Monocytes # (A) 0.3 k/uL (0-1.0); Monocytes % (A) 5 %; Neutrophils # (A) 6.1 k/uL (1.3-7.7); Neutrophils % (A) 83 %; Platelet Count 316 k/uL (150-450); RBC 4.64 m/uL (3.80-5.40); WBC 7.3 k/uL (3.8-10.6)
[2024-11-12] MEDS: LORazepam 2 MG/ML INJ IV STA (13:33)
[2024-11-12 13:49] LABS: ALT 31 U/L (4-34); AST 35 U/L (14-36); African American GFR (CKD) >90 (>60 ml/min/1.73 sqM); Albumin 4.8 g/dL (3.5-5.0); Alkaline Phosphatase 57 U/L (38-126); Anion Gap 13 mmol/L; Blood Urea Nitrogen 7 mg/dL (7-17); Calcium 9.4 mg/dL (8.4-10.2); Carbon Dioxide 24 mmol/L (22-30); Chloride 98 mmol/L (98-107); Creatine Kinase 62 U/L (30-135); Glucose 143 mg/dL (74-99); Non-African American GFR(CKD) >90 (>60 ml/min/1.73 sqM); Sodium 135 mmol/L (137-145); Total Bilirubin 0.4 mg/dL (0.2-1.3); Total Protein 7.5 g/dL (6.3-8.2)
[2024-11-12 14:23] LABS: INR 0.9 (<1.2); Prothrombin Time 10.2 sec (10.0-12.5)
[2024-11-12 14:24] LABS: Partial Thromboplastin Time 23.6 sec (22.0-30.0)
--- NOTE | 2024-11-12 14:26 | CT ---
EXAMINATION TYPE: CT brain wo con CT DLP: 2281.8 combined mGycm, Automated exposure control for dose reduction was used. DATE OF EXAM: 11/12/2024 2:17 PM COMPARISON: CT brain 09/17/2024, CTA of head and neck 09/17/2024 CLINICAL INDICATION:Female, 54 years old with history of Neuro deficit, acute, stroke suspected, Head ache and blurred vision x 1 day. Aneurysm rupture x 2 months ago TECHNIQUE: Brain: Multiple axial CT images of the brain were obtained without IV contrast. . Coronal and sagitta l reformats reviewed. FINDINGS: Brain: Extra-axial spaces: No abnormal extra-axial fluid collections. Ventricular system: Within normal limits Cerebral parenchyma: No acute intraparenchymal hemorrhage or mass effect. The gomez-white junction is well differentiated. Cerebellum: Unremarkable. Mass effect: No evidence of midline shift. 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 Soft tissues: Normal. Calvarium/osseous structures: No depressed skull fracture. Paranasal sinuses and mastoid air cells: Clear Visualized orbits: Orbital contents are intact. IMPRESSION: 1. No acute intracranial process. 2. 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 [facility], , 11/12/2024 2:24 PM
--- NOTE | 2024-11-12 14:45 | CT ---
EXAMINATION TYPE: CT angio head neck CT DLP: 2281.8 combined mGycm, Automated exposure control for dose reduction was used. DATE OF EXAM: 11/12/2024 2:26 PM COMPARISON: CTA head and neck 09/17/2024, CT brain 09/17/2024, 11/12/2024. CLINICAL INDICATION:Female, 54 years old with history of Neuro deficit, acute, stroke suspected; PHH, Headache and blurred vision x 1 day. Aneurysm rupture x 2 months ago TECHNIQUE: Axially acquired helical CT angiogram of the head and neck was obtained with contrast util izing 75 cc of Isovue-370 administered intravenously. Axial images are supplemented with 3D reconstru ctions which were post-processed at an independent workstation. NASCET criteria used. FINDINGS: CTA HEAD: No evidence of acute intracranial hemorrhage, mass effect, or midline shift. The ventricles, sulci, a nd cisterns are unremarkable. The visualized portions of the internal carotid arteries, middle cerebral arteries, anterior cerebral arteries, and posterior cerebral arteries are patent. Postsurgical changes with stent involving the A1 and A2 segments of the right anterior cerebral artery. The A1 segment of the left anterior cerebra l artery is nonvisualized again with the A2 segment origin from the right anterior cerebral artery wh ich is an anatomic variant. No evidence for recurrent aneurysm. The basilar and vertebral arteries are patent. CTA NECK: Right Carotid System: The common carotid artery and external carotid artery are patent. The carotid bifurcation demonstrate s no evidence of hemodynamically significant stenosis. Retropharyngeal course of the left internal ca rotid artery. The remaining portions of the internal carotid artery demonstrate normal size without s ignificant narrowing. Left Carotid System: The common carotid artery and external carotid artery are patent. The carotid bifurcation demonstrate s no evidence of hemodynamically significant stenosis. The remaining portions of the internal carotid artery demonstrate normal size without significant narrowing. Vertebral arteries are patent without evidence hemodynamically significant stenosis. Right vertebral artery is dominant. There is a four-vessel aortic arch. The origins of the great vessels are patent. No evidence of hemod ynamically significant stenosis. IMPRESSION: 1. No evidence of dissection of the cervical internal carotid arteries or vertebral arteries or any e vidence of significant stenosis at the carotid bifurcations. 2. No evidence of high-grade stenosis or intracranial aneurysm. Postsurgical changes involving the p roximal right SENIOR CAREGIVER with stent identified. [facility], , 11/12/2024 2:43 PM
[2024-11-12 15:16] VITALS: BP 128/90; TEMP 98
== END 2024-11-12 15:14 | disposition home or self-care (01) ==
LOC: EC 12:41
DX: R51.9 Headache, unspecified (principal); I67.1 Cerebral aneurysm, nonruptured; Z87.891 Personal history of nicotine dependence
CPT/HCPCS: 36415; 93005; 80053; 82550; 85025; 85610; 85730; 70496; 70450; 70498; 99284; 96374; J2060; Q9967

== ENCOUNTER → 2025-02-09 | Outpatient (CLI) | payer BC ==
--- NOTE | 2025-02-09 08:00 | MM ---
Reason for Exam: Screening (asymptomatic). Last mammogram was performed 1 year(s) and 2 month(s) ago. Patient History: Menarche at age 15. First Full-Term at age 25. Risk Values: Shania 5 year model risk: 0.9%. NCI Lifetime model risk: 7.8%. Prior Study Comparison: 07/28/2017 Bilateral Diagnostic Mammogram, [facility]. 08/06/2018 Bilateral Diagnostic Mammogram, [facility]. 12/18/2023 Bilateral MG screening mammo w CAD, [facility]. Tissue Density: The breasts are heterogeneously dense, which may obscure small masses. Findings: Analyzed By CAD. There is no suspicious group of microcalcifications or new suspicious mass in either breast. Overall Assessment: Negative, BI-RAD 1 Management: Screening Mammogram of both breasts in 1 year. . Patient should continue monthly self-breast exams. A clinical breast exam by your physician is recommended on an annual basis. This exam should not preclude additional follow-up of suspicious palpable abnormalities. Note on Shania scores and lifetime risk: 1. A Shania score greater than 3% is considered moderate risk. If this is the case, consider specialist referral to assess eligibility for a risk reducing agent. 2. If overall lifetime risk for the development of breast cancer is 20% or higher, the patient may qualify for future screening with alternating mammogram and breast MRI. [facility], , 02/09/2025 7:57 AM. Electronically signed and approved by: Marty Polk M.D. Radiolog[facility]
== END | disposition home or self-care (01) ==
LOC: RADMAMWWP 07:19
PROVIDERS: ATTEND Family Medicine
DX: Z12.31 Encounter for screening mammogram for malignant neoplasm of breast (principal); R92.333 Mammographic heterogeneous density, bilateral breasts
CPT/HCPCS: 77063; 77067